=== PATIENT | male | born 1975 | race Caucasian/White ===

== ENCOUNTER 2024-09-27 11:45 | Inpatient (IN) | payer BC, SELFPAY ==
[2024-09-27] VITALS (12 sets, daily range): BP systolic 146–192; BP diastolic 88–131; PULSE 76–93; RESP 16–18; TEMP 36.8–37.7; O2SAT 96–100; BMI 42.0
--- NOTE | 2024-09-27 14:27 | EX.ED.DYSGE1 ---
HPI History of Present Illness Chief Complaint: Cellulitis Detail of Chief Complaint: Left external ear pain and swelling. Informant: patient Onset/Context/Timing Onset: Days Context: Gradual Onset Timing: Continuous Current Severity: Moderate Maximum Severity: Moderate Narrative Narrative: Healthy 49-year-old male typically on no medications. Last Wednesday night morning he noticed redness and swelling to his left outer ear. Progressively got worse until Wednesday. Wednesday went to his primary care physician's office I believe he saw a nurse practitioner he was started on antibiotic doxycycline twice a day and prednisone daily. They told him he had a cellulitis. Patient states its progressively getting worse. Now it is on the left side of his face and around his ear and neck. Said he is not feeling well and does not really have an appetite. Is having nausea and vomiting. He is not diabetic. Prior similar symptoms: No Recent Illness/Hospitalization: No PFSH PFSH Medical History no medical history no medical history Home Medications ?Medication ?Instructions ?Recorded ?Last Taken ?Type NK 09/27/24 Unknown History Allergy/AdvReac Type Severity Reaction Status Date / Time No Known Allergies Allergy Verified 09/27/24 11:46 Surgical History no surgical history no surgical history Social History Smoking Status: Never smoker ROS ROS ED ROS Narrative Left ear pain. Fever. Nausea vomiting. Constitutional Constitutional ED: Reports fever(s) Eyes Eyes: Denies blurry vision ENT ENT ED: Denies ear pain Cardiovascular Cardiovascular: Denies chest pain or palpitations Respiratory/Chest Respiratory/Chest: Denies cough or dyspnea Gastrointestinal Gastrointestinal: Reports nausea; Denies abdominal pain Genitourinary Genitourinary ED: Denies dysuria or hematuria Musculoskeletal Musculoskeletal: Denies arthralgias, back pain or myalgias Integumentary Denies abscess, Abrasions or rash Neurologic Neurologic: Denies headache(s) Psychiatric Psychiatric: Denies anxiety Endocrine Endocrinology: Denies cold intolerance Hematologic/Lymphatic Hematologic/Lymphatic: Reports none Allergic/Immunologic Allergic/Immunologic ED: Denies mouth swelling, tongue swelling or urticaria EXAM Physical Exam Narrative Exam Narrative: 49-year-old male sitting upright in bed. Vital signs stable with blood pressure elevated 170s over 131 to be rechecked. He is currently afebrile. He does not look septic or toxic. H EENT exam pupils round reactive light. Motions are intact. Moist mucous membranes. Posterior pharynx unremarkable. Right ear and external ear are normal. Left ear redness of the entire external ear. The canal is red and swollen but it is open. I can see his eardrum is red. Has had swelling around the ear also in the left lateral part of his face. He has got no cervical lymphadenopathy. The canal is not closed. This is consistent with an otitis externa that is spread. Lungs clear to auscultation. Heart regular rhythm rate about 80 no murmur. Chest wall ribs nontender. Abdomen soft nontender. Moving all 4 extremities. Calves are nontender without edema or cords. Normal strength. Neurologically is awake alert. Answer questions following commands. Back unremarkable nontender. Const Vital Signs: 09/27/24 11:46 09/27/24 14:35 Temperature 98.2 F Temperature Source Oral Pulse Rate 78 76 Respiratory Rate 18 17 Blood Pressure 177/131 H 185/113 H Blood Pressure Mean 146 137 Pulse Ox 96 98 Oxygen Delivery Method Room Air Room Air Positive well nourished, well developed and unkempt; Negative for cachectic or contractures General Appearance ED: unkempt, well developed and NAD; Negative for cachectic, contractures, cyanotic, diaphoretic or pallor Nutritional Appearance: Negative for cachectic HEENT Reports moist mucous membranes HEENT Narrative: Left ear swollen and red. Canal swollen and red but not close. Left TM swollen and red. But not perforated. This is consistent with a malignant otitis externa. tenderness; Negative for trauma Eyes PERRL and EOMs intact bilaterally Neck no lymphadenopathy, supple and no JVD Chest Wall inspection of chest normal and palpation of chest normal Resp normal respiratory effort and clear to auscultation bilaterally Cardio regular rate, regular rhythm, S1 normal heart sound, S2 normal heart sound and no murmurs GI normal to inspection, nondistended, normoactive bowel sounds, non-tender, non-distended and no masses Auscultation: normoactive bowel sounds Palpation: soft; Negative for tender, guarding or rebound tenderness present Back/Spine no CVA tenderness General Back: Negative for CVA tenderness Cervical Spine: Negative for cervical spine tenderness Thoracic Spine / Upper Back: Negative for thoracic spinal tenderness or paraspinal muscle tenderness Lumbar Spine / Lower Back: Negative for lumbar spinal tenderness Extremity normal to inspection General Extremety ED: Negative for edema, tenderness or other findings General Extremity: Negative for edema or other findings Neuro oriented x3 and CN's II-XII intact bilaterally Sensorium / Orientation: alert; Negative for orientation impaired Motor Exam: strength 5/5 throughout; Negative for general weakness or strength abnormal Psych mental status grossly normal Appearance: unkempt Attitude: No agitated Mood & Affect: Negative for depressed, anxious or tearful Skin No no rashes or lesions noted, no wounds and skin turgor normal Skin Narrative: Left ear redness rash consistent with otitis externa. General Skin Exam: Negative for jaundice or pallor Lesions: No lesion noted Rashes: rashes noted MDM MDM MDM Narrative Medical decision making narrative: 49-year-old male left otitis externa that is failed outpatient therapy. He will be started on IV Zosyn and Ciprodex drops. I will admit him to the hospital with the hospitalist. I did speak to ENT who is in agreement with the plan. Repeat exam patient doing well at 3:41 PM. Will be admitted to general medical floor. He is already received his IV Zosyn and Ciprodex eardrops. Hospitalist is on page. We also discussed his elevated blood pressure which will need further evaluation and he may need to be started on blood pressure medications. History & Record Review Discussion w/independent historian: Family Additional record(s) reviewed:: No prior records Lab Data Attestation: I reviewed the patient's lab results. Lab results narrative: CBC normal. White count of 7. H&H 15 and 44. Platelets 223. Chemistry shows sodium 135. Gap 13. Normal BUN of 17 creatinine 0.9. Glucose 135. Labs: Laboratory Results - last 24 hr 09/27/24 14:35 WBC 7.7 RBC 5.65 Hgb 15.2 Hct 44.6 MCV 78.9 L MCH 26.9 L MCHC 34.1 RDW Std Deviation 42.0 RDW Coeff of Jesús 14.7 H Plt Count 223 MPV 11.1 Immature Gran % (Auto) 0.400 Neut % (Auto) 84.3 H Lymph % (Auto) 11.0 L [place] % (Auto) 3.9 Eos % (Auto) 0.0 Baso % (Auto) 0.4 Absolute Neuts (auto) 6.5 Absolute Lymphs (auto) 0.85 Nucleated RBC % 0 Sodium 135 Potassium 3.9 Chloride 99 Carbon Dioxide 23.4 Anion Gap 13 BUN 17 Creatinine 0.95 Estim Creat Clear Calc 133.77 Est GFR (MDRD) Non-Af 97 BUN/Creatinine Ratio 17.8 Glucose 135 H Calcium 9.1 Discharge Plan Triage Chief Complaint: Cellulitis ED Provider: Conrad Bocanegra Dx/Rx/DC Orders Clinical Impression: External otitis of left ear, Failure of outpatient treatment, Elevated blood pressure reading Prescriptions: No Action NK Primary Care Provider: [facility] Doctor,Out of Referrals: [facility] Doctor,Out of [Primary Care Provider] - Print Language: Bahamian Disposition Disposition: Acute Care [facility]
[2024-09-27] MEDS: Piperacil/Tazobactam 4.5 GM in 0.9% Normal Saline (100mL MB+) 100 ML IV (14:50)
[2024-09-27 14:51] LABS: Absolute Lymphocyte Count 0.85 X10^3/uL (0.83-4.51); Absolute Neutrophil Count 6.5 X10^3/uL (2.0-7.7); Basophil# 0.03 X10^3/uL; Basophil% 0.4 % (0-1); Hematocrit 44.6 % (40-54); Hemoglobin 15.2 g/dL (13.0-16.5); Lymphocyte # 0.85 X10^3/ul (0.83-4.51); Mean Corp Hgb Conc 34.1 g/dL (32-36); Mean Corpuscular Hgb 26.9 pg (27.0-32.0); Mean Corpuscular Volume 78.9 fL (80-94); Mean Platelet Vol. 11.1 fl (6.2-12.0); Monocyte% 3.9 % (0-10); NRBC Flagged by Analyzer 0 % (0-5); Neutrophil # 6.52 X10^3/uL (2.7-7.7); Neutrophil % 84.3 % (47-70); Platelet Count 223 K/mm3 (150-450); RBC Distribution Width CV 14.7 % (11.6-14.6); Red Blood Count 5.65 M/mm3 (4.6-6.2); White Blood Count 7.7 K/mm3 (4.4-11.0)
[2024-09-27] MEDS: Ciprofloxacin 0.3% 2.5ml Bottle 2 DRP LEFT EAR ×2 (14:54→22:25)
[2024-09-27 15:46] LABS: Anion Gap 13 (5-15); BUN 17 mg/dL (4-19); BUN/Creat Ratio 17.8 RATIO (10-20); Calcium,Total 9.1 mg/dL (7.6-11.0); Carbon Dioxide 23.4 mmol/L (21.0-32.0); Chloride 99 mmol/L (98-108); Creatinine, Serum 0.95 mg/dL (0.70-1.20); EST Glomerular Filtration Rate 97 (>60); Estimated Creatinine Clearance 133.77 ml/min (50-250); Glucose 135 mg/dL (70-99); Potassium 3.9 mmol/L (3.3-5.1); Sodium Level 135 mmol/L (133-145)
--- NOTE | 2024-09-27 16:38 | HP.PCM.HOS_ITS ---
HPI - General General Date of Admission: 09/27/24 Date of Service: 09/27/24 Chief Complaint: Worsening left ear external pain and swelling HPI Narrative NEPTALI ALDRIDGE, is a 49 M who presented to [facility] ED on 09/27/2004 with worsening left ear external pain and swelling. I saw the patient at bedside in the ED. Patient has no significant past medical history. 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 He developed redness and swelling of his left outer ear last . It progressively got worse and he saw his PCP for this on Wednesday. He was prescribed prednisone and doxycycline twice daily but it continued to worsen without any improvement so he came in for further evaluation. He has redness noted now on the left side of his face and around his ear and neck. He is having nausea with vomiting and generally does not feel well and does not have an appetite. Given these findings, he was given doses of IV Zosyn and ciprofloxacin drops and will be admitted for further management. [facility] Medical History no medical history Home Medications ?Medication ?Instructions ?Recorded ?Last Taken ?Type NK 09/27/24 Unknown History Allergy/AdvReac Type Severity Reaction Status Date / Time No Known Allergies Allergy Verified 09/27/24 11:46 Surgical History no surgical history Social History Smoking Status: Never smoker ROS Constitutional Constitutional: Reports fatigue; Denies chills, fever(s) or weakness Eyes Eyes: Denies blurry vision or change in vision ENT HEENT: Reports ear pain; Denies hearing loss Cardiovascular Cardiovascular: Denies chest pain Respiratory/Chest Respiratory/Chest: Denies shortness of breath at rest Gastrointestinal Gastrointestinal: Reports nausea and vomiting; Denies abdominal pain, constipation or diarrhea Genitourinary Genitourinary: Denies dysuria Musculoskeletal Musculoskeletal: Denies arthralgias or myalgias Neurologic Neurologic: Denies focal weakness, headache(s) or numbness Vital Signs Vital Signs Vital Signs: 09/27/24 11:46 09/27/24 14:35 09/27/24 16:00 Temperature 98.2 F Temperature Source Oral Pulse Rate 78 76 82 Respiratory Rate 18 17 16 Blood Pressure 177/131 H 185/113 H 146/105 H Blood Pressure Mean 146 137 118 Pulse Ox 96 98 97 Oxygen Delivery Method Room Air Room Air Room Air 09/27/24 16:11 09/27/24 16:12 Temperature 99.8 F H 99.8 F H Temperature Source Oral Pulse Rate 82 82 Respiratory Rate 16 16 Blood Pressure 146/105 H 146/105 H Blood Pressure Mean 118 118 Pulse Ox 97 99 Oxygen Delivery Method Weight Weight: 140.614 kg Body Mass Index (BMI) 42.0 Physical Exam Const alert, oriented x3 and no apparent distress Constitutional Narrative: Middle-age male, class III obesity, mildly fatigued appearing but otherwise sitting back comfortably in bed, conversing normally, in no acute distress. General Appearance: cooperative and comfortable HEENT normocephalic, head/scalp atraumatic, hearing grossly normal bilaterally, nasal mucous membranes and turbinates normal and moist oral mucous membranes HEENT Narrative: Significant left external ear redness noted with extension into the left face and neck area. Eyes PERRL, EOMs intact bilaterally and conjunctivae normal Neck full ROM Chest inspection of chest normal Resp normal respiratory effort, normal air movement, no use of accessory muscles and clear to auscultation bilaterally Cardio regular rate, regular rhythm, no murmurs and peripheral pulses 2+ throughout GI normal to inspection, nondistended, normoactive bowel sounds, soft to palpation, non-tender and non-distended Back/Spine normal ROM Extremity normal to inspection, full ROM and no pedal edema Skin no rashes or lesions noted Psych mental status grossly normal Results Lab / Micro Data 09/27/24 14:35 09/27/24 14:35 Labs: Laboratory Results - last 24 hr 09/27/24 14:35: WBC 7.7, RBC 5.65, Hgb 15.2, Hct 44.6, MCV 78.9 L, MCH 26.9 L, MCHC 34.1, RDW Std Deviation 42.0, RDW Coeff of Jesús 14.7 H, Plt Count 223, MPV 11.1, Immature Gran % (Auto) 0.400, Neut % (Auto) 84.3 H, Lymph % (Auto) 11.0 L, [place] % (Auto) 3.9, Eos % (Auto) 0.0, Baso % (Auto) 0.4, Absolute Neuts (auto) 6.5, Absolute Lymphs (auto) 0.85, Nucleated RBC % 0, Sodium 135, Potassium 3.9, Chloride 99, Carbon Dioxide 23.4, Anion Gap 13, BUN 17, Creatinine 0.95, Estim Creat Clear Calc 133.77, Est GFR (MDRD) Non-Af 97, BUN/Creatinine Ratio 17.8, G lucose 135 H, Calcium 9.1 Assessment & Plan Assessment/Plan (1) External otitis of left ear: PLAN: Plan Patient is a 49-year-old male who presented [facility] ED on 09/27/2024 with worsening left ear external pain with erythema. 1. Left ear otitis externa and otitis media ? Admit under inpatient status to [facility]. Was treated with p.o. doxycycline and steroids in outpatient setting; likely does not qualify as failure of outpatient treatment as this was an appropriate treatment for his ailment. Will treat with IV Zosyn and Ciprofloxacin drops for now. Pain control with Tylenol, oxycodone and IV morphine as needed. Monitor closely. 2. Elevated BP readings ? Has had elevated BP readings to the 180s to 190s systolic while inpatient. Suspect underlying primary hypertension; notably patient does not see the doctor on a regular basis. Will start amlodipine 5 mg daily and treat with IV hydralazine as needed for SBP greater than 170. 3. Class III obesity ? BMI 42 on admit. Encouraged weight loss. Complicates hospital course, care and prognosis. DVT prophylaxis: Lovenox twice daily CODE STATUS: Full code, verified Expected disposition: Home, 2 to 3 days Total clinical time spent by myself addressing the patient's medical issues, reviewing all the data, and collaborating with patient's care team: 55 minutes. Charges/Coding Visit Charges Inpatient E&M: 95320 Init Hosp L2
[2024-09-27] MEDS: hydrALAZINE 20 MG/ML Vial 10 MG IV ×2 (18:23→22:21)
[2024-09-27] MEDS: Acetaminophen 325 MG Tablet 650 MG PO (20:23)
[2024-09-27] MEDS: 0.9% Normal Saline (250mL Bag) 250 ML 15 ML IV (20:24)
[2024-09-27] MEDS: Piperacil/Tazobactam 3.375 GM in 0.9% Normal Saline (50mL MB+) 50 ML IV (22:19)
[2024-09-27] MEDS: Enoxaparin 40 MG/0.4 ML Syringe SC (22:24)
[2024-09-27 23:32] LABS: Hemoglobin A1c 5.8 % (<=5.6)
[2024-09-28] VITALS (7 sets, daily range): BP systolic 150–154; BP diastolic 93–114; PULSE 79–95; RESP 16–18; TEMP 36.7–37.3; O2SAT 97–98
[2024-09-28] MEDS: amLODIPine 5 MG Tablet PO ×2 (00:11→10:05)
[2024-09-28] MEDS: Piperacil/Tazobactam 3.375 GM in 0.9% Normal Saline (50mL MB+) 50 ML IV ×3 (05:12→21:28)
[2024-09-28] MEDS: Acetaminophen 325 MG Tablet 650 MG PO ×3 (05:22→21:36)
[2024-09-28 06:14] LABS: Hematocrit 44.6 % (40-54); Hemoglobin 15.1 g/dL (13.0-16.5); Mean Corp Hgb Conc 33.9 g/dL (32-36); Mean Corpuscular Hgb 26.7 pg (27.0-32.0); Mean Corpuscular Volume 78.8 fL (80-94); Mean Platelet Vol. 10.8 fl (6.2-12.0); Platelet Count 221 K/mm3 (150-450); RBC Distribution Width CV 14.9 % (11.6-14.6); RBC Distribution Width SD 42.5 fl (35.1-43.9); Red Blood Count 5.66 M/mm3 (4.6-6.2); White Blood Count 10.1 K/mm3 (4.4-11.0)
[2024-09-28 07:28] LABS: Anion Gap 13 (5-15); BUN 15 mg/dL (4-19); BUN/Creat Ratio 13.4 RATIO (10-20); Calcium,Total 8.9 mg/dL (7.6-11.0); Carbon Dioxide 23.9 mmol/L (21.0-32.0); Chloride 100 mmol/L (98-108); Creatinine, Serum 1.12 mg/dL (0.70-1.20); EST Glomerular Filtration Rate 80 (>60); Estimated Creatinine Clearance 113.46 ml/min (50-250); Glucose 118 mg/dL (70-99); Potassium 3.5 mmol/L (3.3-5.1); Sodium Level 137 mmol/L (133-145)
[2024-09-28] MEDS: Enoxaparin 40 MG/0.4 ML Syringe SC ×2 (10:03→21:29)
[2024-09-28] MEDS: Ciprofloxacin 0.3% 2.5ml Bottle 2 DRP LEFT EAR ×2 (10:03→21:28)
--- NOTE | 2024-09-28 11:12 | PCM.PN.HOSP ---
Reason for Visit Reason for Visit: Diagnoses Unspecified otitis externa, left ear (09/27/24) Subjective Subjective Saw patient at bedside this morning. He was resting comfortably in bed and in no acute distress. Cellulitis appeared moderately improved today from yesterday. Patient states that he feels improved today, denies any fevers or chills or nausea and ear pain is improved. No other new concerns today. Objective Data Objective Data Vital Signs: Vital Signs Temp Pulse Resp BP Pulse Ox O2 Del Method 98.1 F 79 18 154/93 H 97 Room Air 09/28/24 08:19 09/28/24 08:19 09/28/24 08:19 09/28/24 08:19 09/28/24 09:34 09/28/24 09:34 Oxygen Delivery Method Room Air Weight: 140.614 kg Body Mass Index (BMI) 42.0 Intake & Output: Intake and Output for Last 24 Hours 09/26/24 09/27/24 09/28/24 23:59 23:59 23:59 Intake Total 200 / 200 100 / 100 Balance 200 / 200 100 / 100 Lab / Micro Data 09/28/24 05:46 09/28/24 05:46 Labs: Laboratory Results - last 24 hr 09/27/24 14:35: WBC 7.7, RBC 5.65, Hgb 15.2, Hct 44.6, MCV 78.9 L, MCH 26.9 L, MCHC 34.1, RDW Std Deviation 42.0, RDW Coeff of Jesús 14.7 H, Plt Count 223, MPV 11.1, Immature Gran % (Auto) 0.400, Neut % (Auto) 84.3 H, Lymph % (Auto) 11.0 L, [place] % (Auto) 3.9, Eos % (Auto) 0.0, Baso % (Auto) 0.4, Absolute Neuts (auto) 6.5, Absolute Lymphs (auto) 0.85, Nucleated RBC % 0, Sodium 135, Potassium 3.9, Chloride 99, Carbon Dioxide 23.4, Anion Gap 13, BUN 17, Creatinine 0.95, Estim Creat Clear Calc 133.77, Est GFR (MDRD) Non-Af 97, BUN/Creatinine Ratio 17.8, Glucose 135 H, Hemoglobin A1c 5.8 H, Calcium 9.1 09/28/24 05:46: WBC 10.1, RBC 5.66, Hgb 15.1, Hct 44.6, MCV 78.8 L, MCH 26.7 L, MCHC 33.9, RDW Std Deviation 42.5, RDW Coeff of Jesús 14.9 H, Plt Count 221, MPV 10.8, Sodium 137, Potassium 3.5, Chloride 100, Carbon Dioxide 23.9, Anion Gap 13, BUN 15, Creatinine 1.12, Estim Creat Clear Calc 113.46, Est GFR (MDRD) Non-Af 80, BUN/Creatinine Ratio 13.4, Glucose 118 H, Calcium 8.9 Physical Exam Const alert, oriented x3 and no apparent distress Constitutional Narrative: Middle-age male, class III obesity, energy improved today, sitting back comfortably in bed, conversing normally, in no acute distress. General Appearance: cooperative and comfortable HEENT normocephalic, head/scalp atraumatic, hearing grossly normal bilaterally, nasal mucous membranes and turbinates normal and moist oral mucous membranes HEENT Narrative: Left external ear remains erythematous but erythema much improved on face and neck from admission. Eyes PERRL, EOMs intact bilaterally and conjunctivae normal Neck full ROM Chest inspection of chest normal Resp normal respiratory effort, normal air movement, no use of accessory muscles and clear to auscultation bilaterally Cardio regular rate, regular rhythm, no murmurs and peripheral pulses 2+ throughout GI normal to inspection, nondistended, normoactive bowel sounds, soft to palpation, non-tender and non-distended Back/Spine normal ROM Extremity normal to inspection, full ROM and no pedal edema Skin no rashes or lesions noted Psych mental status grossly normal Assessment & Plan Assessment/Plan (1) External otitis of left ear: PLAN: Plan Patient is a 49-year-old male who presented [facility] ED on 09/27/2024 with worsening left ear external pain with erythema. 1. Left ear otitis externa and otitis media ? Was treated with p.o. doxycycline and steroids in outpatient setting; likely does not qualify as failure of outpatient treatment as the steroids were not an appropriate treatment for this. Has had moderate improvement on IV Zosyn and ciprofloxacin drops. Will continue these treatments today and if continuing to improve tomorrow, will tentatively plan for discharge home on p.o. doxycycline and p.o. ciprofloxacin drops to complete 7-day courses total. 2. Elevated BP readings ? Has had elevated BP readings to the 180s to 190s systolic while inpatient. Suspect underlying primary hypertension; notably patient does not see the doctor on a regular basis. Started on amlodipine 5 mg daily with improvement in blood pressure to the 150s systolic. Continue amlodipine and IV hydralazine as needed for SBP greater than 170. 3. Class III obesity ? BMI 42 on admit. Encouraged weight loss. Complicates hospital course, care and prognosis. DVT prophylaxis: Lovenox twice daily CODE STATUS: Full code, verified Expected disposition: Home, 1 to 2 days Total clinical time spent by myself addressing the patient's medical issues, reviewing all the data, and collaborating with patient's care team: 35 minutes. Charges/Coding Visit Charges Inpatient E&M: 87743 Subs Hosp L2
--- NOTE | 2024-09-28 12:43 | CASEMGMT ---
MODESTO CHANEY Assessment: Face to Face with pt for initial transition planning/care coordination assessment. RN SHIV introduced self and role at [facility], pt voices understanding and consents to assessment. Pt is A&O x4 and answers all questions appropriately at this time. Pt sitting up in bed in no distress. Care providers, pharmacy, and demographics verified/updated. Admitting Dx: left otitis externa, failed outpt tx Strata Score: 1 PCP:Derrek Specialists:Denies Preferred Pharmacy:[facility] Retail Insurance: [employer] Prescription Benefit: yes LNOK: Mariel Evans, Living Arrangements: Pt lives with and dtr in a two story home with [facility] with 2 steps to enter. Pt reports he is I in ADL/IADLs and denies concerns at home. Transportation: Pt drives self and denies concerns with transportation. DME:Denies HHC/SNF: Pt has had HHC in the past but cannot recall name of the agency. Pt denies SNF stays. Pt states no concerns with going home at time of dc. Pt states no further concerns/needs. CM to follow. Advised pt to ask CM if any further questions/concerns/needs arise, voices understanding. Pt Goal: Home Plan: Home [facility]AD[facility] CM
[2024-09-28] MEDS: 0.9% Saline Lock 10 ML Syringe IV (14:01)
[2024-09-28] MEDS: oxyCODONE 5 MG Tablet PO (21:36)
[2024-09-29 02:00] VITALS: BP 158/107; PULSE 78; RESP 16; TEMP 36.9; O2SAT 96
[2024-09-29] MEDS: Piperacil/Tazobactam 3.375 GM in 0.9% Normal Saline (50mL MB+) 50 ML IV (05:32)
[2024-09-29] MEDS: Acetaminophen 325 MG Tablet 650 MG PO ×2 (05:39→11:46)
[2024-09-29] MEDS: oxyCODONE 5 MG Tablet PO (05:40)
[2024-09-29 06:21] LABS: Hematocrit 43.8 % (40-54); Hemoglobin 14.9 g/dL (13.0-16.5); Mean Corpuscular Hgb 26.8 pg (27.0-32.0); Mean Corpuscular Volume 78.9 fL (80-94); Mean Platelet Vol. 11.1 fl (6.2-12.0); Platelet Count 163 K/mm3 (150-450); RBC Distribution Width CV 14.7 % (11.6-14.6); RBC Distribution Width SD 42.4 fl (35.1-43.9); Red Blood Count 5.55 M/mm3 (4.6-6.2); White Blood Count 6.7 K/mm3 (4.4-11.0)
[2024-09-29 07:18] LABS: Anion Gap 12 (5-15); BUN 13 mg/dL (4-19); BUN/Creat Ratio 13.4 RATIO (10-20); Calcium,Total 8.6 mg/dL (7.6-11.0); Carbon Dioxide 23.5 mmol/L (21.0-32.0); Chloride 101 mmol/L (98-108); EST Glomerular Filtration Rate 91 (>60); Estimated Creatinine Clearance 127.08 ml/min (50-250); Glucose 104 mg/dL (70-99); Potassium 3.3 mmol/L (3.3-5.1); Sodium Level 136 mmol/L (133-145)
[2024-09-29] MEDS: Enoxaparin 40 MG/0.4 ML Syringe SC (07:45)
[2024-09-29] MEDS: Ciprofloxacin 0.3% 2.5ml Bottle 2 DRP LEFT EAR (07:45)
[2024-09-29] MEDS: amLODIPine 5 MG Tablet PO (07:45)
[2024-09-29 08:36] LABS: Magnesium 2.3 mg/dL (1.5-2.2); Phosphorus 3.3 mg/dL (2.7-4.5)
[2024-09-29] MEDS: Losartan Potassium 50 MG Tablet PO (08:39)
[2024-09-29] MEDS: Potassium Chloride Oral Tablet 20 MEQ 40 MEQ PO (08:39)
--- NOTE | 2024-09-29 09:57 | PCM.DC ---
Discharge Instructions Diet Discharge Diet: 2000 Calorie Control Diet DC O2, CPAP, BIPAP needs Home O2 Discharge instructions: No Dressing / Incision Discharge Activity: No Restrictions Follow Up Care Test Results: Test results from this visit will be discussed in further detail at your follow-up appointment, if applicable. Discharge Plan Admission Admit Date/Time: 09/27/24 16:40 Primary Reason for Your Visit: ear infection Attending Provider: Leonardo Guadalupe Primary Care Provider: Heri Anglin Discharge Orders/Prescriptions Prescriptions: New amlodipine 5 mg Tablet 5 mg PO DAILY 30 Days Qty: 30 2RF ciprofloxacin HCl 0.3 % drops 2 drp LEFT EYE BID 5 Days Qty: 15 0RF losartan 50 mg Tablet 50 mg PO DAILY 30 Days Qty: 30 2RF doxycycline hyclate 100 mg tablet 100 mg PO BID 5 Days Qty: 10 0RF oxycodone 5 mg tablet 5 mg PO Q6H PRN (Reason: pain) 3 Days Qty: 12 0RF meclizine 25 mg tablet 25 mg PO TID PRN (Reason: dizziness) 5 Days Qty: 15 0RF No Action NK Referrals / Follow Up: Heri Anglin MD [Primary Care Provider] - Denis Juarez MD [Med Staff - Active Staff] - [facility] Doctor,Out of [Non-Staff] - Disposition Disposition (needs filled in before D/C Order can be placed): Home, Self Care
--- NOTE | 2024-09-29 09:57 | PCM.DC.SUM ---
Providers Date of Admission: 09/27/24 Date of Discharge: 09/29/24 Primary Care Physician: Dr. Heri Anglin MD Reason For Visit: LEFT OTITIS EXTERNA, FAILED OUT PT TX Diagnosis Discharge Diagnosis (1) External otitis of left ear: Status: Acute Code(s): H60.92 - Unspecified otitis externa, left ear (2) Ear pain: Status: Acute Code(s): H92.09 - Otalgia, unspecified ear Medications at Discharge Home Medications NK 09/27/24 amlodipine 5 mg tablet 5 mg PO DAILY 30 days #30 tabs 09/29/24 ciprofloxacin HCl 0.3 % eye drops 2 drp LEFT EYE BID 5 days #15 mL 09/29/24 doxycycline hyclate 100 mg tablet 100 mg PO BID 5 days #10 tabs 09/29/24 losartan 50 mg tablet 50 mg PO DAILY 30 days #30 tabs 09/29/24 meclizine 25 mg tablet 25 mg PO TID PRN dizziness 5 days #15 tabs 09/29/24 oxycodone 5 mg tablet 5 mg PO Q6H PRN pain 3 days #12 tabs 09/29/24 Hospital Course Operations None Procedures None Summary of Care Provided Minutes Spent on Discharge: 35 Hospital Course: Patient is a 49-year-old male who presented [facility] ED on 09/27/2024 with worsening left ear external pain with erythema. Hospital course as noted below. Patient discharged home in stable condition on 09/29. 1. Left ear otitis externa with failed outpatient treatment ? Was initiated on treatment with p.o. doxycycline and steroids 2 days prior to admission with no improvement and worsening cellulitis. Treated with IV Zosyn and ciprofloxacin drops while inpatient with very good improvement. Stable for discharge home on 09/29 and will treat with 5 more days of p.o. doxycycline and ciprofloxacin drops to complete 7-day course total. Given short courses of p.o. oxycodone 5 mg every 6 hours as needed and meclizine 25 mg 3 times daily as needed for symptoms of ear and facial pain and intermittent dizziness presumed secondary to this infection. 2. Elevated BP readings ? Had elevated BP readings up to the 180s to 190s systolic while inpatient. Strongly suspect underlying primary hypertension. Started on amlodipine 5 mg daily and losartan 50 mg daily while inpatient with improvement to the 130s to 140 systolic. Patient agreeable to being discharged home on amlodipine and losartan. Recommended he obtain a blood pressure cuff and check his blood pressure on a daily basis with plan for close outpatient follow-up with his PCP. 3. Class III obesity ? BMI 42 on admit. Encouraged weight loss. Complicated hospital course, care and prognosis. Total clinical time spent by myself addressing the patient's medical issues, reviewing all the data, and collaborating with patient's care team: 35 minutes. Physical Exam Const alert, oriented x3 and no apparent distress Constitutional Narrative: Middle-age male, class III obesity, energy improved from admission, sitting back comfortably in bed, conversing normally, in no acute distress. General Appearance: cooperative and comfortable HEENT normocephalic, head/scalp atraumatic, hearing grossly normal bilaterally, nasal mucous membranes and turbinates normal and moist oral mucous membranes HEENT Narrative: Left external ear remains erythematous but erythema on face and neck much improved for admission and ear erythema also improved from admission. Eyes PERRL, EOMs intact bilaterally and conjunctivae normal Neck full ROM Chest inspection of chest normal Resp normal respiratory effort, normal air movement, no use of accessory muscles and clear to auscultation bilaterally Cardio regular rate, regular rhythm, no murmurs and peripheral pulses 2+ throughout GI normal to inspection, nondistended, normoactive bowel sounds, soft to palpation, non-tender and non-distended Back/Spine normal ROM Extremity normal to inspection, full ROM and no pedal edema Skin no rashes or lesions noted Psych mental status grossly normal Weight / BMI Weight Weight: 140.614 kg Body Mass Index (BMI) 42.0 ABG / Lab / Microbiology Data 09/29/24 05:43 09/29/24 05:43 Laboratory: Laboratory Results - last 24 hr 09/29/24 05:43: WBC 6.7, RBC 5.55, Hgb 14.9, Hct 43.8, MCV 78.9 L, MCH 26.8 L, MCHC 34.0, RDW Std Deviation 42.4, RDW Coeff of Jesús 14.7 H, Plt Count 163, MPV 11.1, Sodium 136, Potassium 3.3, Chloride 101, Carbon Dioxide 23.5, Anion Gap 12, BUN 13, Creatinine 1.00, Estim Creat Clear Calc 127.08, Est GFR (MDRD) Non-Af 91, BUN/Creatinine Ratio 13.4, Glucose 104 H, Calcium 8.6, Phosphorus 3.3, Magnesium 2.3 H D/C Instructions DC O2, CPAP, BIPAP Needs Home O2 Discharge instructions: No Meaningful Use Info Meaningful Use Meaningful Use Diagnoses (Choose all that apply): None applicable Ischemic Stroke Statin Dosing Therapy Reference: STATIN DOSE THERAPY REFERENCE: * Patients > 75 years receive moderate or high dose statin therapy. * Patients 75 years or YOUNGER should receive HIGH intensity statin dose unless contraindicated. You will be required to document reason for non-treatment if statin daily dose does not meet guidelines. HIGH DOSE STATIN THERAPY DAILY Atorvastatin > than or = to 40 mg Rosuvastatin > than or = to 20 mg Amlodipine + Atorvastatin > than or = to 2.5/40 mg Ezetimibe + Simvastatin 10/80 mg Simvastatin 80mg Discharge Plan Admission Admit Date/Time: 09/27/24 16:40 Primary Reason for Your Visit: ear infection Attending Provider: Leonardo Guadalupe Primary Care Provider: Heri Anglin Discharge Orders/Prescriptions Prescriptions: New amlodipine 5 mg Tablet 5 mg PO DAILY 30 Days Qty: 30 2RF ciprofloxacin HCl 0.3 % drops 2 drp LEFT EYE BID 5 Days Qty: 15 0RF losartan 50 mg Tablet 50 mg PO DAILY 30 Days Qty: 30 2RF doxycycline hyclate 100 mg tablet 100 mg PO BID 5 Days Qty: 10 0RF oxycodone 5 mg tablet 5 mg PO Q6H PRN (Reason: pain) 3 Days Qty: 12 0RF meclizine 25 mg tablet 25 mg PO TID PRN (Reason: dizziness) 5 Days Qty: 15 0RF No Action NK Referrals / Follow Up: Heri Anglin MD [Primary Care Provider] - Denis Juarez MD [Med Staff - Active Staff] - [facility] Doctor,Out of [Non-Staff] - Disposition Disposition (needs filled in before D/C Order can be placed): Home, Self Care Charges/Coding Visit Charges Inpatient E&M: 94823 Disch Hosp >30min
[2024-09-29 10:00] VITALS: BP 162/96; PULSE 82; RESP 16; TEMP 36.8; O2SAT 97
== END 2024-09-29 12:45 | disposition home or self-care (01) | DRG 153 ==
LOC: ED 15:54 → MS3 16:51
PROVIDERS: Admitting Provider Hospitalist; Emergency Provider Emergency Medicine; PCP Family Medicine; Referring Provider Emergency Medicine; Visit Provider Hospitalist
DX: H66.92 Otitis media, unspecified, left ear (principal); Z68.41 Body mass index [BMI] 40.0-44.9, adult; E66.813 Obesity, class 3; I10 Essential (primary) hypertension; H60.92 Unspecified otitis externa, left ear
CPT/HCPCS: 36415; 80048; 83036; 83735; 84100; 85025; 85027; 94668; 99284; A4216

== ENCOUNTER → 2025-01-12 | Outpatient (CLI) | payer BC, SELFPAY ==
--- NOTE | 2025-01-12 08:25 | MRI_ITS ---
PROCEDURE: BRAIN W/WO CONTRAST 01/12/2025 REASON FOR EXAM: SENSORINEURAL HEARING LOSS, LEFT EAR TECHNIQUE: Procedure Code: [id number] Modality: MR Procedure: BRAIN W/WO CONTRAST Multiplanar and multisequence images were obtained. CONTRAST: Clariscan VOLUME: 27 mL COMPARISON: None. FINDINGS: Brain: Normal signal intensities. Diffusion: No restricted diffusion. Ventricles: No ventriculomegaly. Internal acoustic canals: Asymmetric enhancing of the left internal acoustic canal including the 7th and 8th cranial nerves and the labyrinth. Internal acoustic Tuft top sign is noted. The right internal acoustic canal is unremarkable. Major Intracranial Vessels: Patent. Sinuses: Clear. Mastoids: Clear. Orbits: Unremarkable without acute abnormalities MRI/Brain W/WO Contrast IMPRESSION: Asymmetric enhancing of the left internal acoustic canal including the 7th and 8th cranial nerves and the labyrinth suggestive of viral infection/Khan s palsy. Reading Location: [id number]
== END | disposition home or self-care (01) ==
LOC: OPMRI 08:02
PROVIDERS: PCP Family Medicine
DX: H90.42 Sensorineural hearing loss, unilateral, left ear, with unrestricted hearing on the contralateral side (principal)
CPT/HCPCS: 70553; A9575